=== PATIENT | male | born 1990 | race Two or more races ===

== ENCOUNTER 2022-05-23 14:06 | Emergency (ER) | payer SELFPAY ==
[~2022-05-23] VITALS: Ht 172.7 cm; Wt 61.0 kg
[2022-05-23 14:08] VITALS: BP 138/83
[2022-05-23 16:53] LABS: RSV AMPLIFICATION NEGATIVE (NEGATIVE)
== END 2022-05-23 22:38 | disposition left against medical advice (07) ==
LOC: M ED 14:06
DX: Z53.21 Procedure and treatment not carried out due to patient leaving prior to being seen by health care provider (principal)